=== PATIENT | female | born 1990 | race Caucasian/White ===

== ENCOUNTER 2018-05-01 18:00 | Outpatient (CLI) | payer OTHER ==
[~2018-05-01] VITALS: Ht 154.9 cm; Wt 76.4 kg
[~2018-05-01 18:00] MED LIST: PREN1TAB17 PO
[2018-05-01 18:12] VITALS: Ht 154.9 cm; Wt 76.4 kg
[2018-05-01 18:19] VITALS: BP 115/63; PULSE 88; RESP 18
--- NOTE | 2018-05-01 19:44 | PN ---
Triage Information Date/Time May 01, 2018 Reason for visit: DFM Weeks of Gestation 38w 4d /Para 4/3 Diabetes: none Hypertention: none Additional information PMHx: none. POBHx: x 3 at term. Last one was 5 years ago. PSHx: none. NKDA. Objective Vital Signs Date Temp Pulse Resp B/P (MAP) Pulse Ox O2 O2 Flow FiO2 Time Delivery Rate 05/01/18 97.5 88 18 115/63 Room Air 18:19 (80) Heart Rate: 130's Heart Rate Comments Accels to 160 BPM. No decels. Contractions: >10 Minutes Apart Results/Medications Imaging Results BPP 8/8. CHLOE 11.5 cm. VTX. Anterior placenta. Disposition: Discharge Assessment/Plan A: IUP at 38w 4d. Decreased movement. P: D/C home. F/u with her doctor as scheduled (she was just at the clinic today). kick counts reviewed. RINA PINEDA MD May 01, 2018 19:43
== END 2018-05-01 19:30 | disposition home or self-care (01) ==
LOC: OBT 18:00 → L-D 18:01 → OBT 19:30
PROVIDERS: ATTEND Obstetrics & Gynecology
DX: O36.8130 Decreased fetal movements, third trimester, not applicable or unspecified (principal); Z3A.38 38 weeks gestation of pregnancy
CPT/HCPCS: 76818; Z7500; G0463

== ENCOUNTER 2018-05-11 16:07 | Inpatient (IN) | payer OTHER ==
[~2018-05-11] VITALS: Ht 154.9 cm; Wt 76.7 kg
[2018-05-11 16:34] VITALS: Ht 154.9 cm; Wt 76.7 kg
[2018-05-11 16:35] VITALS: BP 111/60; PULSE 83; RESP 18
[2018-05-11] MEDS ORDERED: LIDOCAINE 1% (MPF) 30 ML INJ INJ PRN (20:00)
[2018-05-11] MEDS ORDERED: IBUPROFEN 600 MG TAB PO PRN (20:00)
[2018-05-11] MEDS ORDERED: METHYLERGONOVINE 0.2 MG INJ IM PRN (20:00)
[2018-05-11] MEDS ORDERED: OXYTOCIN 30 UNITS/LR 500 ML IV SCH ×2 (20:00)
[2018-05-11] MEDS ORDERED: OXYTOCIN 30 UNITS/LR 500 ML IV PRN (20:00)
[2018-05-11] MEDS ORDERED: CARBOPROST 250 MCG INJ IM PRN (20:00)
[2018-05-11] MEDS ORDERED: OXYCODONE/ACETAMINOPHEN (5/325) TAB PO PRN (20:00)
[2018-05-11] MEDS ORDERED: BUTORPHANOL 2 MG INJ IV PRN (20:00)
[2018-05-11] MEDS ORDERED: MISOPROSTOL 200 MCG TAB PR PRN (20:00)
[2018-05-11] MEDS: LACTATED RINGER'S 1,000 ML IV SCH ×2 (22:06→23:25)
--- NOTE | 2018-05-11 23:29 | HP ---
Date/Time of Note Date/Time of Note DATE: 05/11/18 TIME: 23:27 OB - History Hx of Present Free Text/Dictation 28 years old with single intrauterine at 40 weeks complaining of uterine contractions. She states good movement. She denies nausea, vomiting, shortness of breath, chest pain, headache, visual changes, vaginal bleeding or LOF. Chief Complaint: Uterine contractions Estimated Due Date: May 11, 2018 : 4 Para: 3 Spontaneous : 0 Therapeutic : 0 Care: Good Care Ultrasounds: Normal mid trimester US Obstetrical Complications: None Medical Complications: None Past Family/Social History * Past Medical, Surgical, Family and Obstetric Histories reviewed from chart. Blood Type: O+ Rubella: immune RPR/VDRL: Negative GBS Status: Negative HBsAG: Negative OB Admission Exam Vital Signs Vital Signs Vital Signs Date Temp Pulse Resp B/P (MAP) Pulse Ox O2 O2 Flow FiO2 Time Delivery Rate 05/11/18 98.0 83 18 111/60 16:35 (77) Physical Exam HEENT: WNL Heart: Rhythm Normal Lungs: Clear Abdomen: WNL Extremities: Normal Cervical Dilatation: 4cm Effacement: 75% Station: -2 Membranes: Intact Heart Rate: 130's Accelerations: Accelerations Present Decelerations: No Decelerations Varibility: Moderate Contractions on Admission: < 5 Minutes Apart Intensity: Moderate Last 72 hours Lab Results CBC & BMP 05/11/18 22:06 OB Assessment/Plan Other plan: 28-year-old 4 para 3003 with single intrauterine at 40 weeks in active labor - FHR: No sign of metabolic acidosis- Category I - Continuous EFM, toco - CBC, blood type and screen - Analgesia options with R/B/A discussed in detail with patient - Epidural per patient request - Please see the orders - O+/Rubella: Immune - GBS: Negative Admission, procedures, expectations, risks and possible complications have been discussed in detail with the patient. Risk of vaginal delivery including but not limited to bleeding, infection, cervical laceration, placental retention, injury to fetus, blood transfusion, blood transfusion related infection, risk of anesthesia, adhesion, cervical laceration, episiotomy/laceration, possible cielo arean delivery with risk of bleeding, infection, injury to other organs (bowel, bladder, ureter, vessels, nerves), injury to fetus, blood transfusion, blood transfusion related infection, risk of anesthesia, scar and hernia formation, needs for future , removal of uterus or any other indicated surgery discussed with the patient. She expressed understanding and repeats the risks. All of her questions were answered. She signed the informed consent. PHYSICIAN'S VERIFICATION OF INFORMED CONSENT The patient was counseled regarding the procedure, its indications, risks, potential complications and alternatives and any questions were answered. Consent was obtained. PLANNED PROCEDURE/TREATMENT: Vaginal delivery, episiotomy, repair of laceration possible delivery REHAN KENNEDY May 11, 2018 23:29
--- NOTE | 2018-05-11 23:55 | TRIAGE ---
OB Triage Datetime Report Generated by CPN: 05/11/2018 23:55 Datetime: 05/11/2018 23:40 Vaginal Exam Dilatation (cms): 8.0 Effacement (%): 90 Station: -1 Exam By: M. Tersigni RN Datetime: 05/11/2018 22:37 Monitor Mode: External US Datetime: 05/11/2018 22:15 Monitor Mode: External US Datetime: 05/11/2018 22:14 Pain Assessment Pain Scale: 8 Pain Presence: Intermittent Pain Type: Contraction Pain Location: Abdomen Pain Goal: 4 Pain Relief Measures: Comfort Measures Pain Assessment Comments: Pt requesting epidural. Datetime: 05/11/2018 22:13 Vaginal Exam Dilatation (cms): 4.0 Effacement (%): 90 Station: -2 Exam By: Nancy Sin RN Vaginal Bleeding: Normal Show Cervix, Consistency: Soft Cervix, Position: Anterior Presentation 'A': Cephalic Datetime: 05/11/2018 19:10 Vaginal Exam Dilatation (cms): 2.0 Effacement (%): 80 Station: -2 Exam By: S PAYTON Vaginal Bleeding: None Cervix, Consistency: Soft Cervix, Position: Midposition Presentation 'A': Cephalic Datetime: 05/11/2018 16:39 Stage of : OB Triage Datetime: 05/11/2018 16:23 Stage of : OB Triage Assessment Type: Triage Maternal Assessment Level of Consciousness: Fully Conscious DTR's/Clonus: DTRs 2+; No Clonus Headache: Denies Blurred Vision: No Respiratory Effort: Unlabored; Regular Rhythm; Equal Expansion Breath Sounds, Left: Clear and Equal Breath Sounds, Right: Clear and Equal Nausea/Vomiting: Denies RUQ Epigastric Pain: Denies Facial Edema: None Temperature Route: Axillary Fall Risk Assessment History of Falling: (0) No Secondary Diagnosis: (0) No Ambulatory Aid: (0) Bedrest/Nurse Assist IV Therapy: (0) No Gait: (0) Normal/Bedrest/Immobile Mental Status: (0) Oriented to Own Ability Fall Score: 0 Fall Risk Score Definition: No Risk: No action required Labor Evaluation Frequency: APPLIED Monitor Mode: External Pattern: Normal: <= 5 Contractions in 10 Minutes Resting Tone [place]: Relaxed Interventions: Sterile Vaginal Exam Heart Rate FHR Baseline Rate: 145 Monitor Mode: External US Variability: Moderate 6-25 bpm Decelerations: None Pain Assessment Pain Scale: 4 Pain Presence: Intermittent Pain Type: Cramping; Contraction Pain Location: Abdomen Pain Goal: 3 Pain Relief Measures: Comfort Measures Vaginal Exam Dilatation (cms): 1.5 Effacement (%): 70 Station: -2 Exam By: S PAYTON Datetime: 05/11/2018 16:21 Time of Arrival: 05/11/2018 16:00 EGA: 40.0 Arrived By: Ambulatory Arrived From: Home Chief Complaint: C/O UCS Q 5 MIN X 2 HOURS, SMALL AMOUNT OF BLEEDING, DENIES LEAKING OF FLUID Movement: Present Contractions: Irregular Time Contractions Began: 05/11/2018 15:00 Rupture of Membranes: Denies Vaginal Bleeding: Scant Vaginal Discharge: Denies Recent Sexual Intercouse: Yes Abdominal Trauma: Not Applicable Patient Complaints: Cramping Initial Plan: MONITOR, VE Datetime: 05/01/2018 19:00 Stage of : OB Triage Maternal Assessment Level of Consciousness: Fully Conscious Labor Evaluation Frequency: OCCASIONAL Monitor Mode: External Duration (sec)2399: 30-60 Quality: Mild Resting Tone [place]: Relaxed Heart Rate FHR Baseline Rate: 135 Monitor Mode: External US Variability: Moderate 6-25 bpm Accelerations: 15X15 Decelerations: None Category: Category I Pain Assessment Pain Scale: 0 Pain Goal: 3 Membrane Status: Intact Vaginal Bleeding: None Datetime: 05/01/2018 18:10 Assessment Type: Triage Maternal Assessment Level of Consciousness: Fully Conscious DTR's/Clonus: DTRs 2+; No Clonus Headache: Denies Blurred Vision: No Respiratory Effort: Unlabored; Regular Rhythm; Equal Expansion Breath Sounds, Left: Clear and Equal Breath Sounds, Right: Clear and Equal Nausea/Vomiting: Denies RUQ Epigastric Pain: Denies Lower Extremities Edema: None Degree: None Upper Extremities Edema: None Degree: None Facial Edema: None Fall Risk Assessment History of Falling: (0) No Secondary Diagnosis: (0) No Ambulatory Aid: (0) Bedrest/Nurse Assist IV Therapy: (0) No Gait: (0) Normal/Bedrest/Immobile Mental Status: (0) Oriented to Own Ability Fall Score: 0 Fall Risk Score Definition: No Risk: No action required Datetime: 05/01/2018 18:08 Time of Arrival: 05/01/2018 17:50 EGA: 38.4 Arrived By: Ambulatory Arrived From: Dr. Chapin Chief Complaint: PT. SENT FROM CLINIC FOR C/O DFM Movement: Decreased Contractions: Denies/Absent Rupture of Membranes: Denies Vaginal Bleeding: None Vaginal Discharge: Denies Recent Sexual Intercouse: Denies Abdominal Trauma: Not Applicable Patient Complaints: None Provider Notified: BABAK Initial Plan: NST/BPP Datetime: 05/01/2018 18:07 Monitor Mode: External Monitor Mode: External US
[2018-05-12] MEDS ORDERED: FENTAnyl 2MCG/ML-ROPIV 0.2% 100 ML ONE (00:10)
[2018-05-12] MEDS ORDERED: EPHEDrine 25 MG/5 ML SYG ONE (00:16)
[2018-05-12] MEDS ORDERED: PHENYLephrine (100 MCG/ML) 5ML SYG ONE (00:16)
--- NOTE | 2018-05-12 00:24 | PREAC ---
Date/Time of Note Date/Time of Note DATE: 05/12/18 TIME: 00:23 Anesthesia Eval and Record Evaluation Time Pre-Procedure Interview DATE: 05/12/18 TIME: 00:23 Age 28 Sex female NPO: 8 hrs Preoperative diagnosis Labor Pain Planned procedure Labor Epidural Past Medical History Past Medical History: Includes : : (4), Para: (3), Gestational age: (40) Surgery & Anesthesia Issues No known issue Meds Anticoagulation: No Beta Mariluz within 24 hr: No Reason Beta Mariluz not given: Pt. not on B-Mariluz Reported Medications Vit-Iron Fumarate-FA ( Tablet) 1 Each Tablet, 1 EACH PO DAILY 03/01/13 Current Medications Lactated Ringer's 1,000 ml @ 125 mls/hr Q8H IV Last administered on 05/11/18at 23:25; Admin Dose 125 MLS/HR; Start 05/11/18 at 19:57 Butorphanol Tartrate (Stadol) 2 mg Q2H PRN IV .PAIN; Start 05/11/18 at 20:00 Lidocaine (Xylocaine 1% (Mpf)) 30 ml ONCE PRN INJ .EPISIOTOMY; Start 05/11/18 at 20:00 Oxytocin/Lactated Ringer's 500 ml @ 500 mls/hr ONCE POST IV ; Start 05/11/18 at 20:00 Oxytocin/Lactated Ringer's 500 ml @ 125 mls/hr POST IV ; Start 05/11/18 a t 20:00 Ibuprofen (Motrin) 600 mg ONCE PRN PO .PAIN 1-5; Start 05/11/18 at 20:00 Oxycodone/ Acetaminophen (Percocet (5/ 325)) 2 tab ONCE PRN PO .PAIN 6-10; Start 05/11/18 at 20:00 Oxytocin/Lactated Ringer's 500 ml @ 0 mls/hr ONCE PRN IV .VAGINAL BLEEDING; Start 05/11/18 at 20:00 Methylergonovine Maleate (Methergine) 0.2 mg ONCE PRN IM .VAGINAL BLEEDING; Start 05/11/18 at 20:00 Carboprost Tromethamine (Hemabate) 250 mcg ONCE PRN IM .VAGINAL BLEEDING; Start 05/11/18 at 20:00 Misoprostol (Cytotec) 1,000 mcg ONCE PRN WI .VAGINAL BLEEDING; Start 05/11/18 at 20:00 Meds reviewed: Yes Allergies Coded Allergies: No Known Allergies (Verified Allergy, 03/02/13) Allergies Reviewed: Yes Labs/Studies Labs Reviewed: Reviewed by anesthesiologist Result Diagram: 05/11/18 2206 Laboratory Tests 05/11/18 22:06 Blood Bank Test 05/11/18 22:06 Antibody Screen NEGATIVE Blood Type O POSITIVE Rh Immune Globulin Candidate NO test: Positive Studies: ECG (n/a), CXR (n/a) Pre-procedure Exam Last vitals Vital Signs Date Temp Pulse Resp B/P (MAP) Pulse Ox O2 O2 Flow FiO2 Time Delivery Rate 05/11/18 98.0 83 18 111/60 16:35 (77) Airway: Adequate mouth opening, Adequate thyromental dist Mallampati: Mallampati II Teeth: Normal Lung: Normal Heart: Normal ASA Physical Status ASA physical status: 2 Emergency: None Planned Anesthetic Neuraxial: Epidural Planned Pain Management Epidural Pre-operative Attestations Prior to commencing anesthesia and surgery, the patient was re-evaluated, there was verification of: *The patient's identity *The results of appropriate recent lab work and preoperative vital signs *The above evaluation not changing prior to induction *Anesthetic plan, risk benefits, alternative and complications discussed with patient/family; questions answered; patient/family understands, accepts and wishes to proceed. AMARA LAU MD May 12, 2018 00:24
--- NOTE | 2018-05-12 00:26 | PAC ---
Date/Time of Note Date/Time of Note DATE: 05/12/18 TIME: 00:25 Post-Anesthesia Notes Post-Anesthesia Note Last documented vital signs Vital Signs Date Temp Pulse Resp B/P (MAP) Pulse Ox O2 O2 Flow FiO2 Time Delivery Rate 05/12/18 98.0 83 18 111/60 99 room air 00:20 (77) Activity: WNL Respiratory function: WNL Cardiovascular function: WNL Mental status: Baseline Pain reasonably controlled: Yes Hydration appropriate: Yes Nausea/Vomiting absent: Yes AMARA LAU MD May 12, 2018 00:26
[2018-05-12] MEDS ORDERED: NALOXONE (0.4 MG/ML) INJ IV PRN (00:30)
[2018-05-12] MEDS ORDERED: FENTAnyl 2MCG/ML-ROPIV 0.2% 100 ML BAG EPI SCH (00:30)
[2018-05-12] MEDS: LACTATED RINGER'S 1,000 ML IV SCH ×2 (00:45→03:12)
[2018-05-12] MEDS ORDERED: SOD CHLORIDE 0.9% 100 ML ONE (04:02)
[2018-05-12] MEDS ORDERED: IODIXANOL LOCM 100 ML BTL ONE (04:02)
--- NOTE | 2018-05-12 06:30 | LDN ---
Date/Time of Note Date/Time of Note DATE: 05/12/18 TIME: 06:26 Delivery Summary 28 years old with single intrauterine at 40 weeks and 1 day delivered a viable male over 1cm first-degree laceration on fourchette. Nose and mouth suctioned. Rest of body delivered. Cord clamped and cut after stopping pulsation. Placenta delivered spontaneously and intact with three- vessel cord. Laceration repaired with 3-0 chromic SH needle. Patient tolerated procedure well. Time of delivery 05:12 Weight 3885 g - 8 pound 9 ounces 9 at 1 minutes and 9 at 5 minutes EBL 200 ml Weeks of Gestation 40 weeks and 1 day Meconium: none Episiotomy: No Estimated blood loss: 200 Sponge & Needle done & correct: Yes All needle counts correct: Yes Any foreign bodies felt in the: No Delivery Information Sex Infant Sex: male Apgars 1 Minute: 9 5 Minute: 9 10 Minute: 10 Suctioning Nose & mouth suctioned at denzel: Yes Umbilical Cord Umbilical cord with: 3 Vessels Cord presentations: no nuchal cord Cord Blood was obtained: Yes Mother & Baby Disposition Disposition Mom & Baby to Maternity; Good: Yes REHAN KENNEDY May 12, 2018 06:30
[2018-05-12 08:00] VITALS: BP 118/70; PULSE 83; RESP 18
[2018-05-12] MEDS ORDERED: ACETAMINOPHEN 325 MG TAB PO PRN (08:00)
[2018-05-12] MEDS ORDERED: MISOPROSTOL 200 MCG TAB PR PRN (08:00)
[2018-05-12] MEDS ORDERED: DIPHENHYDRAMINE 50 MG INJ IV PRN (08:00)
[2018-05-12] MEDS ORDERED: OXYTOCIN 30 UNITS/LR 500 ML IV PRN (08:00)
[2018-05-12] MEDS ORDERED: CARBOPROST 250 MCG INJ IM PRN (08:00)
[2018-05-12] MEDS ORDERED: DIBUCAINE 1% 30 GM OINT TOP PRN (08:00)
[2018-05-12] MEDS: LACTATED RINGER'S 1,000 ML IV* SCH ×2 (08:00→16:00)
[2018-05-12] MEDS ORDERED: METHYLERGONOVINE 0.2 MG INJ IM PRN (08:00)
[2018-05-12] MEDS ORDERED: ONDANSETRON 4 MG INJ IV PRN (08:00)
[2018-05-12] MEDS ORDERED: WITCH HAZEL/GLYCERIN PAD PR PRN (08:00)
[2018-05-12] MEDS ORDERED: ZOLPIDEM 5 MG TAB PO PRN (08:00)
[2018-05-12] MEDS: DEXTROSE 5%-LR 1,000 ML IV SCH ×2 (08:00→16:00)
[2018-05-12] MEDS ORDERED: BENZOCAINE 20% 56 ML SPRAY TOP PRN (08:00)
[2018-05-12] MEDS ORDERED: LANOLIN HPA 1 PKT TOP PRN (08:00)
[2018-05-12 09:00] VITALS: BP 113/64; PULSE 70; RESP 18
[2018-05-12] MEDS: OXYCODONE/ASPIRIN (4.88/325) TAB PO PRN ×2 (09:11→20:04)
[2018-05-12 12:00] VITALS: BP 114/78; PULSE 79; RESP 18
[2018-05-12] MEDS: IBUPROFEN 600 MG TAB PO SCH ×3 (12:54→23:59)
[2018-05-12 16:00] VITALS: BP 106/59; RESP 18
[2018-05-12 19:45] VITALS: BP 125/68; PULSE 88; RESP 19
[2018-05-13 00:10] VITALS: BP 118/74; PULSE 80; RESP 17
[2018-05-13 03:55] VITALS: BP 96/56; PULSE 91; RESP 17
[2018-05-13] MEDS: IBUPROFEN 600 MG TAB PO SCH ×4 (05:42→23:44)
[2018-05-13 08:30] VITALS: BP 116/68; PULSE 71; RESP 19
[2018-05-13] MEDS: SENNA/DOCUSATE NA (8.6MG/50MG) TAB PO PRN ×2 (08:58→21:23)
--- NOTE | 2018-05-13 13:28 | QN ---
Documentation Comment PPD# 1 is stable afebrile tolerates diet No Vb +BM +voids VS stable Gen NAD Abd soft NT ND Genitalia No blood at perineum --->Discharge plan tomorrow LUH BORREGO M.D. May 13, 2018 13:28
[2018-05-13 16:00] VITALS: BP 119/72; PULSE 64; RESP 18
[2018-05-13] MEDS: OXYCODONE/ASPIRIN (4.88/325) TAB PO PRN (18:16)
[2018-05-13 20:00] VITALS: BP 102/60; PULSE 77; RESP 18
[2018-05-14 04:10] VITALS: BP 105/60; PULSE 62; RESP 18
[2018-05-14] MEDS: IBUPROFEN 600 MG TAB PO SCH ×2 (05:44→11:23)
[2018-05-14 08:00] VITALS: BP_SYST 103; BP_SYST 143; BP_DIAS 65; BP_DIAS 75; PULSE 67; RESP 18
--- NOTE | 2018-05-14 08:12 | DS ---
Date/Time of Note Date/Time of Note DATE: 05/14/18 TIME: 08:11 Discharge Summary Admission/Discharge Info Admit Date/Time May 11, 2018 at 19:50 Discharge Date/Time Discharge Diagnosis term Patient Condition: Stable Hospital Course unremarkable Home Meds Reported Medications Vit-Iron Fumarate-FA ( Tablet) 1 Each Tablet, 1 EACH PO DAILY 03/01/13 Primary Care Provider Not On Staff Doctor Pending Labs Laboratory Tests Test 05/13/18 08:18 White Blood Count 12.0 10^3/ul (4.8-10.8) Red Blood Count 3.76 10^6/ul (4.20-5.40) Hemoglobin 11.5 g/dl (12.0-16.0) Hematocrit 34.5 % (37.0-47.0) Mean Corpuscular Volume 91.8 fl (82.0-101.0) Mean Corpuscular Hemoglobin 30.6 pg (29.0-33.0) Mean Corpuscular Hemoglobin Concent 33.3 g/dl (32.0-37.0) Red Cell Distribution Width 14.3 % (11.5-14.5) Platelet Count 281 10^3/UL (140-415) Mean Platelet Volume 10.4 fl (7.4-10.4) Immature Granulocytes % 0.600 % (0.001-0.429) Neutrophils % 67.3 % (39.0-77.0) Lymphocytes % 24.0 % (15.0-51.0) Monocytes % 5.5 % (0.0-11.0) Eosinophils % 2.3 % (0.0-7.0) Basophils % 0.3 % (0.0-2.0) Nucleated Red Blood Cells % 0.0 /100WBC (0.0-0.0) Immature Granulocytes # 0.070 10^3/ul (0.0-0.031) Neutrophils # 8.1 10^3/ul (1.6-7.5) Lymphocytes # 2.9 10^3/ul (0.8-2.9) Monocytes # 0.7 10^3/ul (0.3-0.9) Eosinophils # 0.3 10^3/ul (0.0-0.5) Basophils # 0.0 10^3/ul (0.0-0.1) Nucleated Red Blood Cells # 0.0 10^3/ul (0.0-0.0) ROMÁN HILLIARD MD May 14, 2018 08:12
[2018-05-14] MEDS ORDERED: MEASLES,MUMPS,RUBELLA VACCINE INJ SC* ONE (09:00)
[2018-05-14] MEDS ORDERED: DIPHTH/TET/ACEL PERTUSS (ADULT) 0.5 ML VIAL IM* ONE (09:00)
== END 2018-05-14 14:30 | disposition home or self-care (01) | DRG 807 ==
LOC: OBT 16:07 → L-D 16:08 → OBT 19:50 → L-D 23:37 → PP1 05-12 08:03
PROVIDERS: ADMIT Obstetrics & Gynecology; ATTEND Obstetrics & Gynecology
PROC: 10E0XZZ Delivery of Products of Conception, External Approach (ICD-10-PCS; principal; 2018-05-12)
PROC: 0UQMXZZ Repair Vulva, External Approach (ICD-10-PCS; 2018-05-12)
PROC: 3E033VJ Introduction of Other Hormone into Peripheral Vein, Percutaneous Approach (ICD-10-PCS; 2018-05-12)
DX: O48.0 Post-term pregnancy (principal); Z37.0 Single live birth; Z3A.40 40 weeks gestation of pregnancy; O70.0 First degree perineal laceration during delivery
CPT/HCPCS: 62319; 76815; 76818; 85025; 85610; 85730; 86592; 86850; 86900; 86901; 87340; 99464; G0463; J2370; J2590; J3010; J7120; J7121; Q9967